=== PATIENT | male | born 1980 | race African-American/Black ===

== ENCOUNTER 2017-12-04 11:04 | Emergency (ER) | payer SELFPAY ==
[2017-12-04] MEDS ORDERED: Amlodipine 5 MG TAB ONE ×2 (11:37→11:38)
[2017-12-04] MEDS ORDERED: cloNIDine 0.1 MG TAB ONE (11:37)
[2017-12-04] MEDS ORDERED: Labetalol HCl 100 MG/20 ML VIAL ONE (11:41)
[2017-12-04] MEDS ORDERED: Nitroglycerin 2% Ointment 1 INCH/1 GM Packet ONE (11:48)
[2017-12-04] MEDS ORDERED: Iopamidol 370 76% 100 ML VIAL ONE (11:49)
[2017-12-04] MEDS ORDERED: Sodium Chloride 0.9% 500 ML BAG ONE (11:50)
[2017-12-04 11:59] LABS: #Basophils 0.1 thou/uL (0.0-0.2); #Lymphocytes 1.6 thou/uL (1.20-3.40); #Monocytes 1.1 thou/uL (0.11-0.59); #Neutrophils 7.7 thou/uL (1.40-6.50); %Basophils 1.2 % (0.0-1.0); %Lymphocytes 15.1 % (21.0-51.0); %Monocytes 10.4 % (0.0-10.0); %Neutrophils 73.4 % (42.0-75.0); Hemoglobin 12.6 g/dL (14.0-18.0); Mean Corpuscular HGB CONC 34.2 g/dL (32.0-36.0); Mean Corpuscular Hemoglobin 30.8 pg (27.0-31.0); Mean Platelet Volume 5.9 fL (7.4-10.4); Platelet Count 218 thou/uL (130-400); RBC Distribution Width 12.9 % (11.5-14.5); Red Blood Cell (RBC) Count 4.09 mill/uL (4.70-6.10); White Blood Cell (WBC) Count 10.5 thou/uL (4.8-10.8)
[2017-12-04 12:03] LABS: PTT 27.3 SEC (22.9-36.1); Prothrombin Time 13.3 SEC (12.0-14.7)
[2017-12-04 12:08] LABS: CKMB 3.8 ng/mL (0-6.6); Troponin I 0.023 ng/mL (< 0.028)
[2017-12-04 12:13] LABS: ALT (SGPT) 16 U/L (8-55); AST (SGOT) 21 U/L (5-34); Albumin 4.5 g/dL (3.5-5.0); Alkaline Phosphatase 42 U/L (40-150); Anion Gap 19 mmol/L (10-20); BUN (Urea Nitrogen) 21 mg/dL (8.9-20.6); Bilirubin, Total 0.7 mg/dL (0.2-1.2); Calc. Creatinine Clearance 0 mL/min (70-130); Calcium 9.9 mg/dL (7.8-10.44); Carbon Dioxide 19 mmol/L (22-29); Chloride 104 mmol/L (98-107); Estimated GFR-MDRD 60; Globulin 3.6 g/dL (2.4-3.5); Glucose 117 mg/dL (70-105); Potassium 3.3 mmol/L (3.5-5.1); Protein, Total 8.1 g/dL (6.0-8.3); Sodium 139 mmol/L (136-145)
[2017-12-04] MEDS ORDERED: Morphine 10 MG/ML VIAL ONE (12:24)
[2017-12-04] MEDS ORDERED: Nitroglycerin 50 MG/250 ML BOT 250 ML ONE (12:40)
[2017-12-04] MEDS ORDERED: Esmolol 2,500 MG/250 ML 250 ML ONE ×2 (13:03→13:06)
--- NOTE | 2017-12-04 14:41 | CT ---
CT ANGIOGRAM OF THE THORACIC AND ABDOMINAL AORTA AND PELVIC CT: HISTORY: Dissection protocol. The patient has a previous ascending and descending thoracic aortic dissection. The patient has undergone treatment. COMPARISON: 05/26/12. TECHNIQUE: CT angiogram of the thoracic and abdominal aorta performed in the axial plane. Three-dimensional ref ormatted images are submitted for interpretation. FINDINGS: CHEST CT: Trachea and central bronchi are patent. There atelectasis in the left lower lobe adjacent to an aneu rysmal descending thoracic aorta. Patchy ground-glass opacities in the right lower lobe are noted. No pneumothorax or significant fluid. ABDOMEN CT: Appropriate enhancement of the solid organs on the arterial phase imaged. Symmetric enhancement of t he kidneys. No obstructive uropathy. No mesenteric mass, lymphadenopathy, free air, or free fluid. Limited evaluation of the alimentary canal due to lack of oral contrast. No evidence of bowel obstru ction. Scattered material in a nondistended, nondilated colon. PELVIC CT: No mass, lymphadenopathy, free air, or free fluid. The urinary bladder is unremarkable. No lytic or blastic lesions in the osseous structures. CT ANGIOGRAM: There is repair of a previously noted type A dissection. The dissection involving the aortic root an d ascending thoracic aorta is not appreciated. There is a small amount of periaortic fluid at the le anjali of the ascending thoracic aorta which is nonspecific. There is a dissection involving the aortic arch just distal to the origin of the left subclavian artery. There is interval aneurysmal dilatati on of the descending thoracic aorta currently measuring 7.0 x 67 cm. The distal descending thoracic aorta is also aneurysmal and measures 5.7 x 5.5 cm. The andreafski lumen appears to supply the celiac ar merary origin, superior mesenteric artery origin, bilateral renal arteries. The dissection slab is dania ewhat complex and multifocal at the level of the infrarenal abdominal aorta. There is aneurysmal dil atation of the infrarenal abdominal aorta which measures 5.1 x 5.6 cm. Nonspecific soft tissue calcifications in the visualized proximal lower extremities. IMPRESSION: 1. Interval repair of an ascending thoracic aortic dissection. There is still evidence of a type B dissection with associated aneurysmal dilatation of the thoracic and abdominal aorta. Results of the study discussed with Dr. Parker 12/04/17 at 12:31 p.m. CODE CR POS: [facility]
== END 2017-12-04 13:34 | disposition short-term general hospital (02) ==
LOC: MADERS 11:04
DX: I71.01 Dissection of thoracic aorta (principal); I10 Essential (primary) hypertension; F17.210 Nicotine dependence, cigarettes, uncomplicated
CPT/HCPCS: 71275; 80053; 82553; 83735; 83880; 84484; 85025; 85610; 93005; 96365; 96368; 96374; 96375; 96376; A4216; J2270; J7050

== ENCOUNTER 2017-12-10 05:43 | Emergency (ER) | payer SELFPAY ==
[2017-12-10] MEDS ORDERED: Morphine 10 MG/ML VIAL ONE (06:03)
[2017-12-10 06:20] LABS: Hemoglobin 12.3 g/dL (14.0-18.0); Mean Corpuscular HGB CONC 34.1 g/dL (32.0-36.0); Mean Corpuscular Hemoglobin 30.5 pg (27.0-31.0); Mean Corpuscular Volume 89.5 fl (80.0-94.0); Mean Platelet Volume 5.5 fL (7.4-10.4); Platelet Count 337 thou/uL (130-400); RBC Distribution Width 12.8 % (11.5-14.5); Red Blood Cell (RBC) Count 4.02 mill/uL (4.70-6.10); White Blood Cell (WBC) Count 14.7 thou/uL (4.8-10.8)
[2017-12-10 06:23] LABS: ALT (SGPT) 41 U/L (8-55); AST (SGOT) 37 U/L (5-34); Albumin 3.9 g/dL (3.5-5.0); Alkaline Phosphatase 52 U/L (40-150); Anion Gap 21 mmol/L (10-20); BUN (Urea Nitrogen) 19 mg/dL (8.9-20.6); Bilirubin, Total 1.1 mg/dL (0.2-1.2); Calc. Creatinine Clearance 0 mL/min (70-130); Calcium 10.6 mg/dL (7.8-10.44); Carbon Dioxide 20 mmol/L (22-29); Chloride 98 mmol/L (98-107); Estimated GFR-MDRD 68; Globulin 4.1 g/dL (2.4-3.5); Lipase 26 U/L (8-78); Potassium 3.6 mmol/L (3.5-5.1); Sodium 135 mmol/L (136-145)
[2017-12-10 06:24] LABS: Band 3 % (5-11); Eosinophils 1 % (0-10); Lymphocytes 12 % (21-51); MDiff Complete? YES; Monocytes 7 % (0-10); Neutrophil 77 % (42-75); PLT Morphology Comment Appears Adequate; RBC Morphology Normal
[2017-12-10 06:25] LABS: Troponin I 0.017 ng/mL (< 0.028)
[2017-12-10] MEDS ORDERED: Labetalol HCl 100 MG/20 ML VIAL ONE (06:31)
[2017-12-10 06:32] LABS: Glucose 116 mg/dL (70-105)
[2017-12-10] MEDS ORDERED: hydrALAZINE 20 MG/ML VIAL ONE (07:05)
[2017-12-10] MEDS ORDERED: Fentanyl 100 MCG/2 ML VIAL ONE (07:30)
[2017-12-10 07:35] LABS: Bilirubin Negative (Negative); Blood, Urine Negative (Negative); Clarity Clear (Clear); Glucose, Urine (Dipstick) Negative (Negative); Leukocyte Negative (Negative); Nitrite Negative (Negative); Protein, Urine (Dipstick) Negative (Neg-Trace); Urobilinogen 0.2 mg/dL (0.2-1.0)
[2017-12-10] MEDS ORDERED: Esmolol 2,500 MG/250 ML 250 ML ONE (08:22)
[2017-12-10] MEDS ORDERED: Iopamidol 370 76% 100 ML VIAL ONE (10:08)
[2017-12-10] MEDS ORDERED: Sodium Chloride 0.9% 100 ML BAG ONE (10:08)
--- NOTE | 2017-12-10 11:55 | CT ---
PRELIMINARY REPORT/[facility]/EMERGENTY AFTER-HOURS PROCEDURE Addendum created by Kwan Fuentes MD on 12/10/2017 7:50 AM Central Time ([place] & [place]) THIS REPORT CONT AINS FINDINGS THAT MAY BE CRITICAL TO PATIENT CARE. The findings were verbally communicated via telep reese conference with VANESSA PERALTA at 7:10 AM CDT on 12/10/2017. The findings were acknowledged and under stood. Initial Report created on 12/10/2017 7:34 AM Central Time ([place] & [place]) CT Angiography Chest With Intravenous Contrast CT Angiography Abdomen With Intravenous Contrast CLINICAL HISTORY: 37 years old, male; Pain; Other: Lower back; Prior surgery; Surgery date: 3-7 days post-operative; Surgery type: Aortic dissection in 2011 and just last week. ; Patient HX: HX of aortic dissection x2. 2011 and 11/2017; Additional info: Pt just got out of hospital from previous aortic dissection at 210 0 last night. Woken up from sleep this am by extreme lower back pain TECHNIQUE: Axial computed tomographic angiography images of the chest and abdomen with intravenous contrast usin g CT angiography protocol. MIP reconstructed images were created and reviewed. Coronal reformatted im ages were created and reviewed. CONTRAST: 100 mL of ISOVUE 370 administered intravenously. COMPARISON: No relevant prior studies available. FINDINGS: Artifacts: Some motion artifact noted. VASCULATURE: Aorta: Post surgical changes suggested along the ascending thoracic aorta and arch. Arch vessels opac radha normally. Aneurysmal dilatation of the aortic just distal to the left subclavian artery with complex dissection extending inferiorly to the bifurcation and along the proximal left common iliac a rtery. Proximal descending thoracic aorta measures up to 6.5 cm with at least two intimal flaps exten ding from the left subclavian artery through the midportion, with compartments of varying contrast density within the proximal aspect. Distally the descending thoracic aorta measures 5 cm wit h the true lumen apparently the smaller. The aorta angulated to hiatus. It measures around 4 cm along the proximal abdominal aorta and is tortuous distally with dilatation in the infrarenal portion diane uring up to 6 x 6.7 cm. There is moderate size retroperitoneal hematoma on the left with stranding ar ound the dilated segment of aorta. Minimal hyperdensities noted within the left posterior aspect of the dilated segment possibly representing contrast extravasation. Several internal linear d ensities are noted within the lumen of the dilated portion. The celiac trunk and SMA arise from a tri angular segment of aorta with flap on either side. The left renal artery presumably arises from the true lumen and the right renal artery from the false. JD is patent distally. Patent right axillofemo ral bypass graft partially visualized. Pulmonary arteries: Limited evaluation. No large central filling defect noted.. Great vessels of aortic arch: See above. Celiac trunk and mesenteric arteries: See above. Renal arteries: See above. CHEST: Lungs: Subsegmental atelectasis in the left lower lobe. No mass or consolidation. Pleural space: Minimal pleural fluid along the left apex and medial left costophrenic angle. Heart: Unremarkable. ABDOMEN: Liver: Unremarkable. Gallbladder and bile ducts: Normal. Pancreas: Unremarkable. Spleen: Unremarkable. Adrenals: Unremarkable. Kidneys and ureters: Unremarkable. Stomach and bowel: Unremarkable. No obstruction. Intraperitoneal space: Normal. No significant fluid collection. No free air. CHEST and ABDOMEN: Bones/joints: No acute fracture. No dislocation. Soft tissues: Ill-defined fluid and bubbles of gas in the upper right anterior chest wall. Lymph nodes: Unremarkable. No enlarged lymph nodes. IMPRESSION: 1. 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 L arger aneurysmal dilatation of the infrarenal aorta with surrounding fat stranding and left retroperi toneal hematoma suspicious for rupture. Minimal hyperdensity along the left posterolateral aspect may represent some contrast extravasation. 2. Large aneurysm of the proximal descending thoracic aorta measuring up to 6.5 cm with some thrombus and dissection compartments of varying density. Minimal pleural fluid noted about the left apex and medial costophrenic angle without periaortic hematoma noted. Thank you for allowing us to participate in the care of your patient. Dictated and Authenticated by: Kwan Fuentes MD 12/10/2017 7:34 AM Central Time ([place] & [place]) FINAL REPORT EMERGENCY AFTER HOURS CT OF CHEST AND ABDOMEN PERFORMED WITH IV CONTRAST ENHANCEMENT WITH 3D RECONSTR UCTIONS: Date: 12/10/17 HISTORY: History of aortic dissection. Patient is reportedly recent postop. Woke up this morning with extreme low back pain. COMPARISON: 12/04/17 study. FINDINGS: There is slight elevation to the left hemidiaphragm with what appear to be atelectatic changes of the left lower lobe. Postoperative changes of the right chest are noted with surgical lesa over the r ight upper chest. There is a large fluid collection with some air present, most of which is in the re gion of the axilla, near the site of the proximal portion of what is probably an axillary femoral gra ft. The inferior margin of the graft extends to the pelvis, but the pelvis was not entirely included on this examination so I cannot make any comment on the distal portion of this graft. Contrast is see n within the graft. The ascending thoracic aorta has a fairly normal caliber. A complex dissecting aneurysm begins just d istal to the level of the left subclavian. The dissection has several intimal components in varying d egrees of contrast density associated with the dissection. The aorta at the aortic knob measures appr oximately 6.6 cm in diameter. The mid descending thoracic aorta is approximately 5.9 cm. The dissecti on and aneurysm continue throughout the abdominal aorta, which remains aneurysmal, measuring approxim ately 5.7 cm in average on dimension distally. The more proximal aorta is less dilated, but still deanna sures approximately 4.4 cm in AP dimension. The celiac and SMA arise from a triangular segment of the intimal dissection which does not appear to represent the true lumen. It is difficult to determine w hat is definitely true or false lumen due to the complexity of the dissection. Along the left side of the distal portion of the abdominal component of this aneurysm is a large hematoma which is mainly a nterior to the psoas muscle. It measures 5.0 cm in diameter and extends from the upper pole of the le ft kidney where it displaces it anteriorly and extends to the level of the pelvis. This could indicat e an acute rupture. I am not certain of what type of intervention may have been performed, but the an eurysm itself appears very similar to what was seen on the previous exam. Liver and spleen are unremarkable in appearance. Pancreas and gallbladder regions are normal. Right a nd left adrenal glands, and right and left kidneys are normal in size. IMPRESSION: 1. Placement of a right axillary graft extending inferiorly, probably extending to the femoral level , although the distal end of the graft is not seen. There is a hematoma and air associated with the r egion near the proximal anastomosis of the graft. 2. Large complex dissection and aneurysm beginning in the descending thoracic aorta and extending to the left common iliac artery. There is large hematoma seen anterior to the left psoas muscle displac ing the left kidney anteriorly. This would be concerning for a rupture given the lack of any definite intervention related to this area, and there is some slightly higher density of what appears to be c ontrast along the left posterolateral margin of the aneurysm which would suggest more active bleeding . This report is in agreement with the preliminary report issued by [facility]. POS: [facility]
== END 2017-12-10 09:17 | disposition short-term general hospital (02) ==
LOC: MADERS 05:43
DX: I71.3 Abdominal aortic aneurysm, ruptured (principal); K66.1 Hemoperitoneum; I10 Essential (primary) hypertension; F17.210 Nicotine dependence, cigarettes, uncomplicated; Z79.899 Other long term (current) drug therapy
CPT/HCPCS: 71275; 80053; 81003; 82553; 83605; 83690; 84484; 85025; 93005; 96374; 96375; 96376; J0360; J2270; J3010; J7050